=== PATIENT | female | born 1970 | race Caucasian/White ===

== ENCOUNTER 2022-12-03 17:56 | Outpatient (CLI) | payer OTHER, SELFPAY | END 2022-12-03 17:57 | disposition home or self-care (01) | LOC: LKVREF 17:57 | PROVIDERS: PCP Nurse Practitioner Family; Visit Provider Nurse Practitioner Family | DX: R30.0 Dysuria (principal); N39.0 Urinary tract infection, site not specified | CPT/HCPCS: 87086; 87186 ==

== ENCOUNTER 2022-12-14 13:56 | Outpatient (CLI) | payer OTHER, SELFPAY | END 2022-12-14 13:57 | disposition home or self-care (01) | LOC: NFLDREF 12-16 05:43 | PROVIDERS: PCP Physician Assistant Medical; Referring Provider Physician Assistant Medical; Visit Provider Family Medicine | DX: N39.0 Urinary tract infection, site not specified (principal) | CPT/HCPCS: 87086; 87186 ==

== ENCOUNTER 2023-05-31 08:14 | Outpatient (CLI) | payer OTHER, SELFPAY | END 2023-05-31 08:15 | disposition home or self-care (01) | LOC: NFLDREF 06-05 06:32 | PROVIDERS: PCP Physician Assistant Medical; Referring Provider Physician Assistant Medical; Visit Provider Physician Assistant Medical | DX: Z00.00 Encounter for general adult medical examination without abnormal findings (principal); I10 Essential (primary) hypertension; D64.9 Anemia, unspecified; Z13.6 Encounter for screening for cardiovascular disorders | CPT/HCPCS: 80053; 80061 ==

== ENCOUNTER 2023-06-03 13:21 | Outpatient (CLI) | payer OTHER, SELFPAY ==
[2023-06-03 23:13] LABS: Chlamydia DNA Amplified* NOT DETECTED (No Detected); GC DNA Amplified* NOT DETECTED (No Detected)
== END 2023-06-03 13:22 | disposition home or self-care (01) ==
LOC: LKVREF 13:21
PROVIDERS: PCP Physician Assistant Medical; Visit Provider Physician Assistant Medical
DX: Z00.00 Encounter for general adult medical examination without abnormal findings (principal); Z11.3 Encounter for screening for infections with a predominantly sexual mode of transmission
CPT/HCPCS: 87491; 87591

== ENCOUNTER 2023-06-20 07:01 | Outpatient (CLI) | payer OTHER, SELFPAY ==
--- NOTE | 2023-06-20 08:52 | W.ANESCHARGE ---
Anesthesia Charges Start Date/Time Anesthesia Start Date: 06/20/23 Anesthesia Start Time: 08:13 Stop Date/Time Anesthesia Stop Date: 06/20/23 Anesthesia Stop Time: 08:48
== END 2023-06-20 07:02 | disposition home or self-care (01) ==
LOC: OP CLINIC 07:02
PROVIDERS: PCP Physician Assistant Medical; Visit Provider Internal Medicine
DX: Z12.11 Encounter for screening for malignant neoplasm of colon (principal); K62.1 Rectal polyp; K57.30 Diverticulosis of large intestine without perforation or abscess without bleeding; R19.8 Other specified symptoms and signs involving the digestive system and abdomen
CPT/HCPCS: 00813; 43239; 45380; 88305; J2704

== ENCOUNTER 2023-09-05 08:03 | Outpatient (CLI) | payer OTHER, SELFPAY ==
--- NOTE | 2023-09-05 08:15 | CRLHL7_ITS ---
For Patients: As a result of the Century Cures Act, medical imaging exams and procedure reports are released immediately into your electronic medical record. You may view this report before your referring provider. If you have questions, please contact your health care provider. BILATERAL SCREENING MAMMOGRAM WITH COMPUTER-AIDED DETECTION AND TOMOSYNTHESIS TECHNIQUE: CC and MLO views were obtained. These mammographic images have been obtained using full-field digital technique. These mammographic images were interpreted with the benefit of computer-aided detection. Breast Tomosynthesis was used in this interpretation. COMPARISON FILM: 07/05/20, 06/20/18, 05/23/17. FINDINGS: There are scattered areas of fibroglandular density IMPRESSION: There is no radiographic evidence for malignancy. ASSESSMENT: BI-RADS Category 1: Negative RECOMMENDATION: Routine screening mammogram in 1 year. A lay language report of this examination will be provided to the patient. Aquilino Gamboa M.D. Diagnostic Radiologist [email or web address] HERNANDO/Dictated by: Aquilino Gamboa MD @ 09/05/2023 8:54:00 AM (Electronically Signed)
== END 2023-09-05 08:04 | disposition home or self-care (01) ==
LOC: MAMMO 08:04
PROVIDERS: PCP Physician Assistant Medical; Visit Provider Physician Assistant Medical
DX: Z12.31 Encounter for screening mammogram for malignant neoplasm of breast (principal)
CPT/HCPCS: 77063; 77067

== ENCOUNTER 2023-10-28 15:47 | Outpatient (CLI) | payer OTHER, SELFPAY | END 2023-10-28 15:48 | disposition home or self-care (01) | LOC: NFLDREF 11-12 04:38 | PROVIDERS: PCP Physician Assistant Medical; Referring Provider Physician Assistant Medical; Visit Provider Nurse Practitioner Family | DX: R35.0 Frequency of micturition (principal) | CPT/HCPCS: 87086 ==

== ENCOUNTER 2024-03-03 09:47 | Outpatient (CLI) | payer OTHER, SELFPAY | END 2024-03-03 09:48 | disposition home or self-care (01) | PROVIDERS: PCP Physician Assistant Medical; Visit Provider Otolaryngology | DX: H91.8X3 Other specified hearing loss, bilateral (principal); Z11.9 Encounter for screening for infectious and parasitic diseases, unspecified | CPT/HCPCS: 84443; 86039; 86431; 86618 ==

== ENCOUNTER 2024-03-11 07:08 | Outpatient (CLI) | payer OTHER, SELFPAY ==
--- OUTSIDE RECORDS SUMMARY | 2024-03-11 07:10 | XMS_ITS | Continuity of Care Document ---
Author Organization [place] [facility] Address [address] [place] [address] Assessment Encounter Date Assessment Date Assessment LastModified by Organization Details LastModified Time 01/29/2024 01/29/2024 Recommend bilateral mapping and H&P. GCS 20-30 mmHg Rx given today. Begin conservative therapy trial. [email or web address] Not available 01/29/2024 10:50:13 Plan of Treatment Reminders Order Date Submit Date Provider Last Modified By Organization Details Last Modified Time Details Appointments None record ed. Lab None record ed. Referral None record ed. Procedures None record ed. Surgeries None record ed. Imaging None record ed. Medication Orders None record ed. Patient TargetsNo targets recorded. Patient InstructionsNo instructions recorded. Reason for Referral None Reported. Medical Equipment None Reported. Medications Name Sig Start Date Stop Date Status Note LastModified by Organization Details LastModified Time lisinopril 20 mg tablet TAKE 1 TABLET BY MOUTH ONCE DAILY active Not Available Not Available No t Available prednisone 20 mg tablet TAKE 1 TABLET BY MOUTH ONCE DAILY active Not Available Not Available No t Available valacyclovir 500 mg tablet TAKE 1 TABLET BY MOUTH TWICE DAILY NEEDED active Not Available Not Available No t Available fluticasone propionate 50 mcg/actuation nasal spray,suspensi on USE 2 SPRAY(S) IN EACH NOSTRIL ONCE DAILY active Not Available Not Available No t Available cyclobenzaprin e 5 mg tablet TAKE 1 TABLET BY MOUTH THREE TIMES DAILY NEEDED FOR MUSCLE SPASM active Not Available Not Available No t Available GaviLyte-G 236 gram-22.74 gram-6.74 gram-5.86 gram oral solution DRINK 240 ML BY MOUTH EVERY 10 MINUTES UNTIL FECAL EFFLUENT IS CLEAR active Not Available Not Available No t Available Vitals None Recorded Social History None recorded. Functional Status None recorded. Mental Status None recorded. Family History Nothing Reported. Medical History No medical history recorded. Gynecological HistoryNo gynecological history recorded. Obstetrics History GPAL:G 0 P 0 0 0 0 Past Encounters Encounter ID Performer Location Encounter Start Date Encounter Closed Date Diagnosis/Indication Diagnosis SNOMED-CT Code [id number] Nhung Juares MD [address] [address] 01/29/2024 09:53:28 01/31/2024 10:59:11 Varicose veins of lower extremity [id number] Health Concerns Section Related Observation LastModified by Organization Detai ls LastModified Time None Recorded Concern Status LastModified by Organization Details LastModified Time None Recorded Payers Encounter Date Sequence Insurance Name Policy Number Policy Vela Covered Member ID Vela Member ID Guarantor Name 01/29/2024 1 [employer] Sindi Ramsey [id number] Sindi Ramsey OBGyn Episode No OBEpisode recorded.
--- OUTSIDE RECORDS SUMMARY | 2024-03-11 07:10 | XMS_ITS | Data Portability ---
Author Organization [place] [facility] [place] Address [address] [place] [address] Assessment Encounter Date Assessment Date Assessment LastModified by Organization Details LastModified Time 01/29/2024 01/29/2024 Recommend bilateral mapping and H&P. GCS 20-30 mmHg Rx given today. Begin conservative therapy trial. [email or web address] Not available 01/29/2024 10:50:13 Plan of Treatment [...] Encounter Closed Date Diagnosis/Indication Diagnosis SNOMED-CT Code [id number] Nhung Juares MD [address] [address] 01/29/2024 09:53:28 01/31/2024 10:59:11 Varicose veins of lower extremity [id number] Health Concerns Section Related Observation LastModified by Organization Detai ls LastModified Time None Recorded Concern Status LastModified by Organization Details LastModified Time None Recorded Advance Directives Directive None Recorded Payers Encounter Date Sequence Insurance Name Policy Number Policy Vela Covered Member ID Vela Member ID Guarantor Name 01/29/2024 1 [employer] Sindi Ramsey [id number] Sindi Ramsey OBGyn Episode No OBEpisode recorded.
--- NOTE | 2024-03-11 07:15 | CRLHL7_ITS ---
For Patients: As a result of the Century Cures Act, medical imaging exams and procedure reports are released immediately into your electronic medical record. You may view this report before your referring provider. If you have questions, please contact your health care provider. INDICATION: Bilateral hearing loss TECHNIQUE: Non-contrast sagittal T1, axial FLAIR, FSE T2, DWI, posterior fossa CISS images provided. Supplemental post contrast T1 weighted axial and coronal high resolution images through the posterior fossa with fat saturation and post contrast whole head axial T1 weighted images submitted. No comparisons. 14 cc of dotarem gadolinium was administered intravenously. FINDINGS: The ventricles, sulci and gyri are of normal size, shape and contour for age. Midline structures are centrally located. No convincing evidence of suspicious intra- or extra-axial fluid collections. No regions of restricted diffusion. Expected flow-voids within the cavernous carotids and basilar artery. No suspicious masses within the internal auditory canals. No suspicious regions of abnormal parenchymal enhancement. Minimal scattered foci of increased T2 signal within the supratentorial white matter that are non-specific. IMPRESSION: 1. No radiographic evidence of acute intracranial abnormalities. 2. Minimal scattered supratentorial white matter change that is non-specific. Differential considerations include changes related to diabetes, hypertension, collagen vascular disease or migranous headaches. Dictated by Ronnie Marin MD @ 03/11/2024 7:20:44 PM (Electronically Signed)
== END 2024-03-11 07:09 | disposition home or self-care (01) ==
LOC: MRI 07:09
PROVIDERS: PCP Physician Assistant Medical; Visit Provider Otolaryngology
DX: H91.8X3 Other specified hearing loss, bilateral (principal)
CPT/HCPCS: 70553; A9575

== ENCOUNTER 2024-04-14 19:25 | Outpatient (CLI) | payer OTHER, SELFPAY ==
--- OUTSIDE RECORDS SUMMARY | 2024-04-14 19:28 | XMS_ITS | Continuity of Care Document ---
Author Organization [place] [facility] Address [address] [place] [address] Assessment Encounter Date Assessment Date Assessment LastModified by Organization Details LastModified Time 01/29/2024 01/29/2024 Recommend bilateral mapping and H&P. GCS 20-30 mmHg Rx given today. Begin conservative therapy trial. [email or web address] Not available 01/29/2024 10:50:13 Plan of Treatment [...] Encounter Closed Date Diagnosis/Indication Diagnosis SNOMED-CT Code [id number] Nhung Juares MD [address] [address] 01/29/2024 09:53:28 01/31/2024 10:59:11 Varicose veins of lower extremity [id number] Health Concerns Section Related Observation LastModified by Organization Detai ls LastModified Time None Recorded Concern Status LastModified by Organization Details LastModified Time None Recorded Payers Encounter Date Sequence Insurance Name Policy Number Policy Vela Covered Member ID Vela Member ID Guarantor Name 01/29/2024 1 [employer] Sindi Ramsey [id number] Sindi Ramsey OBGyn Episode No OBEpisode recorded.
--- OUTSIDE RECORDS SUMMARY | 2024-04-14 19:28 | XMS_ITS | Data Portability ---
Author Organization [place] [facility] [place] Address [address] [place] [address] Assessment Encounter Date Assessment Date Assessment LastModified by Organization Details LastModified Time 01/29/2024 01/29/2024 Recommend bilateral mapping and H&P. GCS 20-30 mmHg Rx given today. Begin conservative therapy trial. [email or web address] Not available 01/29/2024 10:50:13 Plan of Treatment [...] Encounter Closed Date Diagnosis/Indication Diagnosis SNOMED-CT Code [id number] Nhung Juares MD [address] [address] 01/29/2024 09:53:28 01/31/2024 10:59:11 Varicose veins of lower extremity [id number] Health Concerns Section Related Observation LastModified by Organization Detai ls LastModified Time None Recorded Concern Status LastModified by Organization Details LastModified Time None Recorded Advance Directives Directive None Recorded Payers Encounter Date Sequence Insurance Name Policy Number Policy Vela Covered Member ID Vela Member ID Guarantor Name 01/29/2024 1 [employer] Sindi Ramsey [id number] Sindi Ramsey OBGyn Episode No OBEpisode recorded.
--- NOTE | 2024-04-28 11:38 | W.PM.SLEEP ---
Sleep Study Details Details Interpreting Provider: Yelena Date of Sleep Study: 04/14/24 Sleep Study Details: STUDY TYPE:? Home unattended ? BMI:? Not recorded ORDERING PROVIDER:? Yelena INDICATION:? Concerned about sleep apnea ? SLEEP SUMMARY:? 424 minutes monitored RESPIRATORY SUMMARY:? AHI 6.9, supine 8.3, left lateral 2.1 Low oxygen 83 12.3% of study oxygen less than 90% Snoring 71% PERIODIC LIMB MOVEMENTS OF SLEEP:? Not recorded CARDIAC:? 56-97, mean 67.7 beats per minute IMPRESSION:? Mild obstructive sleep apnea present only in the supine position overall AHI is 6.9. RECOMMENDATION: Treatment options include positional therapy with avoidance of supine sleep, dental appliance or AutoSet CPAP. Treatment is recommended because of the hypoxemia.
== END 2024-04-14 19:26 | disposition home or self-care (01) ==
LOC: SLEEP 19:26
PROVIDERS: PCP Physician Assistant Medical; Visit Provider Otolaryngology
DX: G47.33 Obstructive sleep apnea (adult) (pediatric) (principal)
CPT/HCPCS: 95806

== ENCOUNTER 2024-06-17 07:20 | Outpatient (CLI) | payer OTHER, SELFPAY | END 2024-06-17 07:21 | disposition home or self-care (01) | LOC: NFLDREF 14:57 | PROVIDERS: PCP Physician Assistant Medical; Referring Provider Physician Assistant Medical; Visit Provider Nurse Practitioner Family | DX: N39.0 Urinary tract infection, site not specified (principal) | CPT/HCPCS: 87086; 87186 ==

== ENCOUNTER 2024-08-07 17:35 | Outpatient (CLI) | payer OTHER, SELFPAY ==
--- OUTSIDE RECORDS SUMMARY | 2024-08-11 07:49 | XMS_ITS | Data Portability ---
Author Organization [facility] Address [address] [place] [address] Assessment Encounter Date Assessment Date Assessment LastModified by Organization Details LastModified Time 01/29/2024 01/29/2024 Recommend bilateral mapping and H&P. GCS 20-30 mmHg Rx given today. Begin conservative therapy trial. [email or web address] Not available 01/29/2024 10:50:13 Plan of Treatment [...] instructions recorded. Reason for Referral None Reported. Procedures Surgical History Date Name Laterality Status Provider Name and Address Organization Details Recorded Time 07/29/20 24 PVC - Cosmetic Sclerotherapy cancelled Esha Dimitry [facility] 07/29/2024 13:06:47 07/29/20 24 PVC - Cosmetic Sclerotherapy completed Nhung Juares MD [address] [place], [address], [facility] 07/29/2024 17:25:35 Imaging Results None recorded. Procedure Notes None recorded. Medical Equipment None Reported. Medications Name Sig Start Date Stop Date Status Note LastModified by Organization Details LastModified Time lisinopril 20 mg tablet TAKE 1 TABLET BY MOUTH ONCE DAILY active Not Available Not Available No t Available prednisone 20 mg tablet TAKE 1 TABLET BY MOUTH ONCE DAILY active Not Available Not Available No t Available clobetasol 0.05 % topical cream active Not Available Not Available Not Available valacyclovir 500 mg tablet TAKE 1 TABLET BY MOUTH TWICE DAILY NEEDED active Not Available Not Available No t Available amoxicillin 875 mg tablet active Not Available Not Availabl e Not Available linezolid 600 mg tablet TAKE 1 TABLET BY MOUTH TWICE DAILY FOR 7 DAYS active Not Available Not Available No t Available fluticasone propionate 50 mcg/actuation nasal spray,suspensi on USE 2 SPRAY(S) IN EACH NOSTRIL ONCE DAILY active Not Available Not Available No t Available cyclobenzaprin e 5 mg tablet TAKE 1 TABLET BY MOUTH THREE TIMES DAILY NEEDED FOR MUSCLE SPASM active Not Available Not Available No t Available nitrofurantoin monohydrate/ma crocrystals 100 mg capsule TAKE 1 CAPSULE BY MOUTH EVERY 12 HOURS FOR 7 DAYS WITH FOOD active Not Available Not Available No t [...] Encounter Closed Date Diagnosis/Indication Diagnosis SNOMED-CT Code Diagnosis ICD10 Code [id number] [place] [address] 01/29/2024 09:53:28 01/31/2024 10:59:11 Varicose veins of lower extremity [id number] I83.813 [id number] MD Konstantin [address] [place] [address] 07/29/2024 16:38:36 08/03/2024 22:24:13 Varicose veins of lower extremity [id number] I83.813 Health Concerns Section Related Observation LastModified by Organization Detai ls LastModified Time None Recorded Concern Status LastModified by Organization Details LastModified Time None Recorded Advance Directives Directive None Recorded Payers Encounter Date Sequence Insurance Name Policy Number Policy Vela Covered Member ID Vela Member ID Guarantor Name 01/29/2024 1 [employer] Sindi Ramsey [id number] Sindi Ramsey 07/29/2024 1 [employer] Sindi Ramsey [id number] Sindi Ramsey OBGyn Episode No OBEpisode recorded.
--- OUTSIDE RECORDS SUMMARY | 2024-08-11 07:50 | XMS_ITS | Continuity of Care Document ---
Author Organization [place] [facility] Address [address] [place] [address] Assessment No assessment recorded. Plan of Treatment Reminders Order Date Submit [...] PVC - Cosmetic Sclerotherapy cancelled Esha Dimitry [facility] 07/29/2024 13:06:47 07/29/20 24 PVC - Cosmetic Sclerotherapy completed Nhung Juares MD [address] [place], [address], [facility] 07/29/2024 17:25:35 Imaging Results [...] Diagnosis/Indication Diagnosis SNOMED-CT Code Diagnosis ICD10 Code [id number] Nhung Juares MD [address] [address] 07/29/2024 16:38:36 08/03/2024 22:24:13 Varicose veins of lower extremity [id number] I83.813 Health Concerns Section Related Observation LastModified by Organization Detai ls LastModified Time None Recorded Concern Status LastModified by Organization Details LastModified Time None Recorded Payers Encounter Date Sequence Insurance Name Policy Number Policy Vela Covered Member ID Vela Member ID Guarantor Name 07/29/2024 1 [employer] Sindi Ramsey [id number] Sindi Ramsey OBGyn Episode No OBEpisode recorded.
== END 2024-08-07 17:36 | disposition home or self-care (01) ==
LOC: NFLDREF 08-11 07:47
PROVIDERS: PCP Physician Assistant Medical; Referring Provider Physician Assistant Medical; Visit Provider Physician Assistant
DX: Z11.3 Encounter for screening for infections with a predominantly sexual mode of transmission (principal); N39.0 Urinary tract infection, site not specified; B96.1 Klebsiella pneumoniae [K. pneumoniae] as the cause of diseases classified elsewhere
CPT/HCPCS: 87086; 87186; 87491; 87591

== ENCOUNTER 2024-11-26 12:55 | Outpatient (CLI) | payer OTHER, SELFPAY | END 2024-11-26 12:56 | disposition home or self-care (01) | LOC: NFLDREF 11-27 03:25 | PROVIDERS: PCP Physician Assistant Medical; Referring Provider Physician Assistant Medical; Visit Provider Family Medicine | DX: N39.0 Urinary tract infection, site not specified (principal) | CPT/HCPCS: 87086 ==

== ENCOUNTER 2024-12-04 18:05 | Outpatient (CLI) | payer OTHER, SELFPAY | END 2024-12-04 18:06 | disposition home or self-care (01) | LOC: NFLDREF 12-13 13:21 | PROVIDERS: PCP Physician Assistant Medical; Referring Provider Physician Assistant Medical; Visit Provider Physician Assistant | DX: R30.0 Dysuria (principal) | CPT/HCPCS: 87086 ==

== ENCOUNTER 2025-03-24 08:19 | Outpatient (CLI) | payer OTHER, SELFPAY | END 2025-03-24 08:20 | disposition home or self-care (01) | PROVIDERS: PCP Physician Assistant Medical; Visit Provider Physician Assistant Medical | DX: Z00.00 Encounter for general adult medical examination without abnormal findings (principal); N39.0 Urinary tract infection, site not specified; B96.20 Unspecified Escherichia coli [E. coli] as the cause of diseases classified elsewhere; Z79.899 Other long term (current) drug therapy; Z78.0 Asymptomatic menopausal state; Z13.6 Encounter for screening for cardiovascular disorders; Z11.4 Encounter for screening for human immunodeficiency virus [HIV]; Z11.59 Encounter for screening for other viral diseases | CPT/HCPCS: 80053; 80061; 82306; 86703; 86803; 87086 ==

== ENCOUNTER 2025-04-10 09:42 | Outpatient (CLI) | payer OTHER, SELFPAY | END 2025-04-10 09:43 | disposition home or self-care (01) | LOC: NFLDREF 04-15 12:12 | PROVIDERS: PCP Physician Assistant Medical; Referring Provider Physician Assistant Medical; Visit Provider Family Medicine | DX: R30.0 Dysuria (principal); N39.0 Urinary tract infection, site not specified; R39.9 Unspecified symptoms and signs involving the genitourinary system | CPT/HCPCS: 87086 ==

== ENCOUNTER 2025-04-26 14:32 | Outpatient (CLI) | payer OTHER, SELFPAY | END 2025-04-26 14:33 | disposition home or self-care (01) | LOC: NFLDREF 04-28 13:03 | PROVIDERS: PCP Physician Assistant Medical; Referring Provider Physician Assistant Medical; Visit Provider Nurse Practitioner Family | DX: N39.0 Urinary tract infection, site not specified (principal) | CPT/HCPCS: 87086 ==